=== PATIENT | female | born 1975 | race Caucasian/White ===

== ENCOUNTER 2018-04-23 17:25 | Emergency (ER) | payer BC ==
[~2018-04-23] VITALS: Ht 160 cm; Wt 84.1 kg
[2018-04-23] MEDS ORDERED: SERT-138 (17:32)
[2018-04-23] MEDS ORDERED: BUPR1TAB56 (17:32)
[2018-04-23] MEDS ORDERED: LITH600C (17:32)
[2018-04-23] MEDS ORDERED: LOSA100T50 (17:32)
[2018-04-23] MEDS ORDERED: CHLO125TA (17:32)
[2018-04-23] MEDS ORDERED: KETOROLAC 30 MG/ML VIAL (J1885) IV ONE (18:00)
[2018-04-23] MEDS ORDERED: NS 1,000 ML IV ONE (18:00)
[2018-04-23] MEDS ORDERED: ONDANSETRON 4MG/2ML VIAL (J2405) IV ONE (18:00)
[2018-04-23 18:21] LABS: BASO # 0.1 10^3/uL (0.0-0.2); BASO % 0.8 % (0.0-1.0); EOS # 0.2 10^3/uL (0.0-0.50); EOS % 3.2 % (0.0-3.0); HEMATOCRIT 41.6 % (36.0-47.0); HEMOGLOBIN 13.9 g/dl (12.0-15.5); LYMPH # 1.7 10^3/uL (1.5-4.5); LYMPH % 27.7 % (24.0-44.0); MEAN CORPUSCULAR HGB CONC 33.4 g/dl (32.0-36.5); MEAN CORPUSCULAR VOLUME 92.7 fl (80.0-96.0); MONO # 0.5 10^3/uL (0.0-0.8); MONO % 9.1 % (0.0-5.0); NEUTROPHILS # 3.5 10^3/uL (1.8-7.7); NEUTROPHILS % 58.9 % (36.0-66.0); PLATELET COUNT, AUTOMATED 398 10^3/uL (150-450); RED BLOOD COUNT 4.49 10^6/uL (4.00-5.40)
--- NOTE | 2018-04-23 18:27 | REPVR ---
EXAM: CT Abdomen and Pelvis Without Contrast EXAM DATE/TIME: 04/23/2018 5:57 PM CLINICAL HISTORY: 42 years old, female; Pain; Abdominal pain; Flank; Right; Additional info: R flank pain TECHNIQUE: Axial computed tomography images of the abdomen and pelvis without contrast. All CT scans at this facility use at least one of these dose optimization techniques: automated exposure control; mA and/or kV adjustment per patient size (includes targeted exams where dose is matched to clinical indication); or iterative reconstruction. Coronal and sagittal reformatted images were created and reviewed. COMPARISON: CT ABD PELVIS W/O CONTRAST 09/30/2013 11:15 AM FINDINGS: Lower thorax: No acute findings. ABDOMEN: Liver: Normal. No mass. Gallbladder and bile ducts: Normal. No calcified stones. No ductal dilation. Pancreas: Normal. No ductal dilation. Spleen: Normal. No splenomegaly. Adrenals: Normal. No mass. Kidneys and ureters: Multiple bilateral non obstructing renal calculi are demonstrated measuring up to 5 mm on the right. Findings stable. Stomach and bowel: Normal. No obstruction. No mucosal thickening. Appendix: No evidence of appendicitis. PELVIS: Bladder: Unremarkable as visualized. Reproductive: Unremarkable as visualized. ABDOMEN and PELVIS: Intraperitoneal space: Normal. No free air. No significant fluid collection. Bones/joints: No acute fracture. No dislocation. Soft tissues: Unremarkable. Vasculature: Normal. No abdominal aortic aneurysm. Lymph nodes: Normal. No enlarged lymph nodes. IMPRESSION: Multiple bilateral non obstructing renal calculi are demonstrated measuring up to 5 mm on the right. Findings stable. No acute findings. Electronically signed by: Ced Valencia On 04/23/2018 18:26:47 PM
[2018-04-23 18:45] LABS: ALBUMIN 3.8 GM/DL (3.2-5.2); ALT/SGPT 23 U/L (12-78); BILIRUBIN,DIRECT < 0.1 MG/DL (0.0-0.2); BILIRUBIN,TOTAL 0.3 MG/DL (0.2-1.0); BLOOD UREA NITROGEN 16 MG/DL (7-18); CALCIUM LEVEL 8.9 MG/DL (8.5-10.1); CARBON DIOXIDE LEVEL 28 MEQ/L (21-32); CHLORIDE LEVEL 104 MEQ/L (98-107); CREATININE FOR GFR 0.98 MG/DL (0.55-1.30); GLOMERULAR FILTRATION RATE > 60.0 (>58); GLUCOSE, FASTING 78 MG/DL (70-100); LIPASE 162 U/L (73-393); POTASSIUM SERUM 3.6 MEQ/L (3.5-5.1); SODIUM LEVEL 140 MEQ/L (136-145); TOTAL PROTEIN 6.6 GM/DL (6.4-8.2)
[2018-04-23] MEDS ORDERED: METHOCARBAMOL 1,000 MG/10 ML VIAL (J2800) IV ONE (18:45)
[2018-04-23] MEDS ORDERED: NAPR-50 PO (19:14)
[2018-04-23] MEDS ORDERED: LIDO5TD TOP (19:14)
[2018-04-23] MEDS ORDERED: ROBA500T PO (19:14)
[2018-04-23 19:20] VITALS: BP 125/82
== END 2018-04-23 19:32 | disposition home or self-care (01) ==
LOC: M ED 17:25
DX: M54.5 Low back pain (principal); M62.830 Muscle spasm of back; R11.0 Nausea; Z87.442 Personal history of urinary calculi; I10 Essential (primary) hypertension; Z88.5 Allergy status to narcotic agent; Z88.8 Allergy status to other drugs, medicaments and biological substances; Z79.899 Other long term (current) drug therapy
CPT/HCPCS: 74176; 80048; 80076; 81001; 81025; 83690; 85025; 96374; 96375; 99284; J1885; J2405; J2800

== ENCOUNTER 2018-08-23 06:16 | Emergency (ER) | payer BC ==
[~2018-08-23] VITALS: Ht 162.6 cm; Wt 84.1 kg
[~2018-08-23 06:16] MED LIST: BUPR1TAB56; CHLO125TA; LIDO5TD TOP; LITH600C; LOSA100T50; NAPR-837 PO; ROBA500T PO; SERT-138
[2018-08-23] MEDS ORDERED: ASPIRIN 81 MG CHEW TABLET PO ONE (06:45)
[2018-08-23] MEDS: NITROGLYCERIN 0.4 MG SUBL TABLET SL PRN ×4 (06:46→07:33)
[2018-08-23 06:55] LABS: BASO # 0.1 10^3/uL (0.0-0.2); BASO % 0.8 % (0.0-1.0); EOS # 0.2 10^3/uL (0.0-0.50); EOS % 2.5 % (0.0-3.0); HEMATOCRIT 40.9 % (36.0-47.0); HEMOGLOBIN 13.5 g/dl (12.0-15.5); LYMPH # 1.9 10^3/uL (1.5-4.5); MEAN CORPUSCULAR HEMOGLOBIN 31.2 pg (27.0-33.0); MEAN CORPUSCULAR VOLUME 94.5 fl (80.0-96.0); MONO # 0.7 10^3/uL (0.0-0.8); MONO % 10.8 % (0.0-5.0); NEUTROPHILS # 3.5 10^3/uL (1.8-7.7); NEUTROPHILS % 55.6 % (36.0-66.0); PLATELET COUNT, AUTOMATED 351 10^3/uL (150-450); RED BLOOD COUNT 4.33 10^6/uL (4.00-5.40); WHITE BLOOD COUNT 6.3 10^3/uL (4.0-10.0)
[2018-08-23 07:05] LABS: INR 0.83; PARTIAL THROMBOPLASTIN TIME 28.8 SECONDS (25.4-37.6); PROTHROMBIN TIME 11.5 SECONDS (12.1-14.4)
[2018-08-23] MEDS ORDERED: ONDANSETRON 4MG/2ML VIAL (J2405) IV ONE (07:15)
[2018-08-23 07:28] LABS: ALBUMIN 3.8 GM/DL (3.2-5.2); ALT/SGPT 29 U/L (12-78); BILIRUBIN,DIRECT < 0.1 MG/DL (0.0-0.2); BILIRUBIN,TOTAL 0.3 MG/DL (0.2-1.0); BLOOD UREA NITROGEN 17 MG/DL (7-18); CALCIUM LEVEL 10.1 MG/DL (8.5-10.1); CARBON DIOXIDE LEVEL 29 MEQ/L (21-32); CHLORIDE LEVEL 106 MEQ/L (98-107); CPK CREATINE PHOSPHOKINASE 121 U/L (26-192); CREATININE FOR GFR 1.02 MG/DL (0.55-1.30); FREE T4 0.88 NG/DL (0.76-1.46); GLOMERULAR FILTRATION RATE > 60.0 (>58); GLUCOSE, FASTING 98 MG/DL (70-100); LIPASE 198 U/L (73-393); MB/CK RELATIVE INDEX 0.83 (< OR =4); SODIUM LEVEL 141 MEQ/L (136-145); TOTAL PROTEIN 6.6 GM/DL (6.4-8.2); TROPONIN I < 0.02 NG/ML (< 0.10)
[2018-08-23 07:33] VITALS: BP 129/84
--- NOTE | 2018-08-23 08:04 | REP ---
Clinical: Acute chest pain . Comparison: 01/17/2013 . Technique: PA and lateral. Findings: The mediastinum and cardiac silhouette are normal. The lung trent are clear and without acute consolidation, effusion, or pneumothorax. The skeletal structures are intact and normal. Impression: 1. No acute cardiopulmonary process. Electronically Signed by Jose Matt MD 08/23/2018 07:56 A
[2018-08-23] MEDS ORDERED: ISOVUE-370 76% 100ML VIAL (Q9967) As Ordered ONE (08:24)
--- NOTE | 2018-08-23 09:01 | REP ---
Clinical: Acute chest pain and shortness of breath . Technique: Axial contrast enhanced images from the thoracic inlet to the upper abdomen using 100 ml Isovue 370 intravenous contrast material with coronal and sagittal re-formations. Findings: Satisfactory enhancement of the pulmonary vasculature is achieved and no filling defects are identified to suggest pulmonary embolus. Thoracic aorta is normal caliber without aneurysm or dissection. Heart and pericardium are normal. Bilateral lung trent are well aerated. Trace left basilar/lingular atelectasis suggested. No significant consolidation. No effusion or pneumothorax. No adenopathy. Tracheobronchial tree is patent. Musculoskeletal structures are intact. Impression: No evidence for pulmonary embolus. Trace left basilar atelectasis. Electronically Signed by Jose Matt MD 08/23/2018 08:53 A
[2018-08-23] MEDS ORDERED: LOSA100T50 PO (09:30)
[2018-08-23] MEDS ORDERED: CHLO125TA PO (09:31)
[2018-08-23 12:55] LABS: CK-MB VALUE MASS < 1.0 NG/ML (<3.6); CPK CREATINE PHOSPHOKINASE 91 U/L (26-192); TROPONIN I < 0.02 NG/ML (< 0.10)
[2018-08-23] MEDS ORDERED: ASPI81TA85 PO (13:31)
[2018-08-23 13:48] VITALS: BP 131/69
--- NOTE | 2018-08-23 20:49 | ECGEPIP ---
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
--- NOTE | 2018-08-23 20:56 | ECGEPIP ---
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
== END 2018-08-23 13:50 | disposition home or self-care (01) ==
LOC: M ED 06:16
DX: R07.9 Chest pain, unspecified (principal); R06.00 Dyspnea, unspecified; I10 Essential (primary) hypertension; Z88.5 Allergy status to narcotic agent; Z88.8 Allergy status to other drugs, medicaments and biological substances
CPT/HCPCS: 71046; 71275; 80048; 80076; 82550; 82553; 83690; 84439; 84443; 84484; 85025; 85610; 85730; 93005; 93041; 94760; 96374; 99285; J2405; Q9967

== ENCOUNTER → 2019-05-27 | Outpatient (CLI) | payer BC ==
[~2019-05-27] MED LIST changes: +ASPI81TA85 PO; +CHLO125TA PO; +LOSA100T50 PO
[2019-05-27 19:07] LABS: ALBUMIN 4.1 GM/DL (3.2-5.2); ALT/SGPT 35 U/L (12-78); BILIRUBIN,TOTAL 0.3 MG/DL (0.2-1.0); BLOOD UREA NITROGEN 13 MG/DL (7-18); CALCIUM LEVEL 10.1 MG/DL (8.5-10.1); CARBON DIOXIDE LEVEL 32 MEQ/L (21-32); CHLORIDE LEVEL 101 MEQ/L (98-107); CREATININE FOR GFR 0.97 MG/DL (0.55-1.30); GLOMERULAR FILTRATION RATE > 60.0 (>58); GLUCOSE, FASTING 91 MG/DL (70-100); POTASSIUM SERUM 3.2 MEQ/L (3.5-5.1); SODIUM LEVEL 138 MEQ/L (136-145); TOTAL PROTEIN 7.2 GM/DL (6.4-8.2)
== END ==
LOC: M PLALAB 12:20
PROVIDERS: ATTEND Nurse Practitioner Adult Health
DX: I10 Essential (primary) hypertension (principal)

== ENCOUNTER → 2019-06-25 | Outpatient (REF) | payer BC ==
[2019-06-26 10:02] LABS: AMORPHOUS SEDIMENT LARGE (NEGATIVE); APPEARANCE, URINE TURBID (CLEAR); BACTERIA, URINE AUTO NEGATIVE (NEGATIVE); BILIRUBIN, URINE AUTO NEGATIVE (NEGATIVE); BLOOD, URINE BLOOD 1+ (NEGATIVE); CALCIUM OXALATE CRYSTALS SMALL; COLOR, URINE YELLOW (YELLOW); GLUCOSE, URINE (UA) AUTO NEGATIVE (NEGATIVE); KETONE, URINE AUTO NEGATIVE (NEGATIVE); LEUKOCYTE ESTERASE, URINE AUTO NEGATIVE (NEGATIVE); MUCUS, URINE SMALL (NEGATIVE); NITRITE, URINE AUTO NEGATIVE (NEGATIVE); PROTEIN, URINE AUTO NEGATIVE (NEGATIVE); RBC, URINE AUTO 0 /HPF (0-3); SPECIFIC GRAVITY URINE AUTO 1.021 (1.002-1.035); SQUAMOUS EPITHELIAL CELL UR AU 0 /HPF (0-6); UROBILINOGEN, URINE AUTO 0.2 mg/dL (0.0-2.0); WBC, URINE AUTO 0 /HPF (0-3)
== END ==
LOC: M SFHCPLAZ 14:45
PROVIDERS: ATTEND Internal Medicine
DX: R30.0 Dysuria (principal)

== ENCOUNTER → 2020-04-06 | Outpatient (CLI) | payer SELFPAY ==
[~2020-04-06] MED LIST changes: -ASPI81TA85 PO; +ASPI81TA86 PO
== END ==
LOC: M LABSMTC 13:14
PROVIDERS: ATTEND Pediatrics
DX: Z20.822 Contact with and (suspected) exposure to COVID-19 (principal)

== ENCOUNTER → 2020-04-28 | Outpatient (CLI) | payer SELFPAY | LOC: M LABSMTC 13:15 | PROVIDERS: ATTEND Pediatrics | DX: Z20.822 Contact with and (suspected) exposure to COVID-19 (principal) ==

== ENCOUNTER 2021-01-29 06:19 | Emergency (ER) | payer BC, SELFPAY ==
[~2021-01-29] VITALS: Ht 162.6 cm; Wt 82.7 kg
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
--- OUTSIDE RECORDS SUMMARY | 2021-01-29 06:28 | CCD ---
Author Author [facility] Organization [facility] Address Unknown Phone Unavailable Care Team Providers Care Environmental Health Physician Name Role Phone Maring, Chandan PA Unavailable Unavailable Maring, Chandan PA Unavailable Unavailable Maring, Chandan PA Unavailable Unavailable Maring, Chnadan PA Unavailable Unavailable Maring, Chandan PA Unavailable Unavailable Maring, Chandan PA Unavailable Unavailable Maring, Chandan PA Unavailable Unavailable Maring, Chandan PA Unavailable Unavailable Maring, Chandan PA Unavailable Unavailable Maring, Chandan PA Unavailable Unavailable Maring, Chandan PA Unavailable Unavailable Maring, Chandan PA Unavailable Unavailable Maring, Chandan PA Unavailable Unavailable Maring, Chandan PA Unavailable Unavailable Maring, Chandan PA Unavailable Unavailable Maring, Chandan PA Unavailable Unavailable Cedric HUTCHINS MD Unavailable Unavailable Cedric HUTCHINS MD Unavailable Unavailable Cedric HUTCHINS MD Unavailable Unavailable Cedric HUTCHINS MD Unavailable Unavailable Cedric HUTCHINS MD Unavailable Unavailable Cedric HUTCHINS MD Unavailable Unavailable Cedric HUTCHINS MD Unavailable Unavailable Cedric HUTCHINS MD Unavailable Unavailable Cedric HUTCHINS MD Unavailable Unavailable Cedric HUTCHINS MD Unavailable Unavailable HUTCHINS, C CINDY MD Unavailable Unavailable HUTCHINS, C CINDY MD Unavailable Unavailable HUTCHINS, C CINDY MD Unavailable Unavailable HUTCHINS, C CINDY MD Unavailable Unavailable HUTCHINS, C CINDY MD Unavailable Unavailable HUTCHINS, C CINDY MD Unavailable Unavailable HUTCHINS, C CINDY MD Unavailable Unavailable HUTCHINS, C CINDY MD Unavailable Unavailable HUTCHINS, C CINDY MD Unavailable Unavailable HUTCHINS, C CINDY MD Unavailable Unavailable HUTCHINS, C CINDY MD Unavailable Unavailable HUTCHINS, C CINDY MD Unavailable Unavailable HUTCHINS, C CINDY MD Unavailable Unavailable HUTCHINS, C CINDY MD Unavailable Unavailable Re-disclosure Warning The records that you are about to access may contain information from federally-assisted alcohol or drug abuse programs. If such information is present, then the following federally mandated warning applies: This information has been disclosed to you from records protected by federal confidentiality rules (42 CFR part 2). The federal rules prohibit you from making any further disclosure of this information unless further disclosure is expressly permitted by the written consent of the person to whom it pertains or as otherwise permitted by 42 CFR part 2. A general authorization for the release of medical or other information is NOT sufficient for this purpose. The Federal rules restrict any use of the information to criminally investigate or prosecute any alcohol or drug abuse patient.The records that you are about to access may contain highly sensitive health information, the redisclosure of which is protected by Article 27-F of the [facility] Public Health law. If you continue you may have access to information: Regarding HIV / AIDS; Provided by facilities licensed or operated by the [facility] Office of Mental Health; or Provided by the [facility] Office for People With Developmental Disabilities. If such information is present, then the following [facility] mandated warning applies: This information has been disclosed to you from confidential records which are protected by state law. State law prohibits you from making any further disclosure of this information without the specific written consent of the person to whom it pertains, or as otherwise permitted by law. Any unauthorized further disclosure in violation of state law may result in a fine or [place] [facility] sentence or both. A general authorization for the release of medical or other information is NOT sufficient authorization for further disc losure. Family History Family Member Name Family Member Gender Family Member Status Date o f Status Description Data Source(s) Unknown Unknown Problem MEDENT ([facility]) Unknown Unknown Problem [facility] ([facility]) Encounters Encounter Providers Location Date Indications Data Source(s ) Outpatient Attender: CINDY HUTCHINS MD 01/28 02:53:06 PM EDT - 01/28/2021 04:38:29 PM EDT [facility] ([facility] ) [place] [address] [facility] [place] [address] 01/10/2021 12:00:00 AM EDT eCW1 ([facility]) Outpatient Attender: Chandan ROMERO 11/16/19 09:49:18 AM EDT - 11/15/2020 10:38:24 AM EDT [facility] ([facility] ) [place] [address] [place] [address] 08/25/2020 12:00:00 AM EDT eCW1 ([facility]) Unknown [address] [facility] [address] [place] [address] 08/11/2020 12:00:00 AM EDT eCW1 ([facility]) Unknown [address] [facility] [address] [place] [address] 08/10/2020 12:00:00 AM EDT eCW1 ([facility]) Unknown [address] [facility] [place] [address] 06/08/2020 12:00:00 AM EST eCW1 ([facility]) Unknown [address] [facility] [address] [place] [address] 04/13/2020 12:00:00 AM EST eCW1 ([facility]) Unknown [address] [facility] [address] [place] [address] 01/01/2020 12:00:00 AM EDT eCW1 ([facility]) Medications Medication Brand Name Start Date Product Form Dose Route Admi nistrative Instructions Pharmacy Instructions Status Indications Reaction Description Data Source(s) 20 mEq 01/11/2021 12:00:00 AM EDT tablet extended release 30 TAKE ONE TABLET BY MOUTH EVERY DAY WITH FOOD TAKE ONE TABLET BY MOUTH EVERY DAY WITH FOOD SOLD: 01/11/2021 [facility] 25 mg 12/23/2020 12:00:00 AM EDT tablet 30 TAKE ONE TABLET BY MOUTH EVERY MORNING WITH FOOD TAKE ONE TABLET BY MOUTH EVERY MORNING WITH FOOD SOLD: 12/23/2020 [facility] 25 mg 12/23/2020 12:00:00 AM EDT tablet 30 TAKE ONE TABLET BY MOUTH EVERY MORNING WITH FOOD TAKE ONE TABLET BY MOUTH EVERY MORNING WITH FOOD SOLD: 01/24/2021 [facility] pantoprazole 40 MG Delayed Release Oral Tablet PANTOPRAZOLE SODIUM 12/10/2020 12:00:00 AM EDT tablet,delayed release (DR/EC) 30 T TONI ONE TABLET BY MOUTH EVERY DAY TAKE ONE TABLET BY MOUTH EVERY DAY SOLD: 01/11/2021 [facility] pantoprazole 40 MG Delayed Release Oral Tablet PANTOPRAZOLE SODIUM 12/10/2020 12:00:00 AM EDT tablet,delayed release (DR/EC) 30 T TONI ONE TABLET BY MOUTH EVERY DAY TAKE ONE TABLET BY MOUTH EVERY DAY SOLD: 12/12/2020 [facility] 100 mg 12/10/2020 12:00:00 AM EDT tablet 30 TAKE ONE TABLET BY MOUTH BEFORE BEDTIME TAKE ONE TABLET BY MOUTH BEFORE BEDTIME SOLD: 12/12/2020 [facility] 100 mg 12/10/2020 12:00:00 AM EDT tablet 30 TAKE ONE TABLET BY MOUTH BEFORE BEDTIME TAKE ONE TABLET BY MOUTH BEFORE BEDTIME SOLD: 01/11/2021 [facility] 800 mg 11/15/2020 12:00:00 AM EDT tablet 30 TAKE ONE TABLET BY MOUTH THREE TIMES A DAY FOR 10 DAYS TAKE ONE TABLET BY MOUTH THREE TIMES A DAY FOR 10 DAYS SOLD: 11/15/2020 [facility] 875 mg 11/15/2020 12:00:00 AM EDT tablet 20 TAKE ONE TABLET BY MOUTH EVERY 12 HOURS FOR 10 DAYS TAKE ONE TABLET BY MOUTH EVERY 12 HOURS FOR 10 DAYS SO LD: 11/15/2020 [facility] 2 % 11/15/2020 12:00:00 AM EDT solution 100 USE 5ML FOUR TIMES A DAY FOR 5 DAYS USE 5ML FOUR TIMES A DAY FOR 5 DAYS SOLD: 11/15/2020 [facility] 90 mcg/actuation 10/10/2020 12:00:00 AM EDT HFA aerosol inha ler 18 INHALE TWO PUFFS BY MOUTH EVERY 4 HOURS NEEDED INHALE TWO PUFFS BY MOUTH EVERY 4 HOURS NEEDED SOLD: 11/12/2020 [facility] 90 mcg/actuation 10/10/2020 12:00:00 AM EDT HFA aerosol inha ler 18 INHALE TWO PUFFS BY MOUTH EVERY 4 HOURS NEEDED INHALE TWO PUFFS BY MOUTH EVERY 4 HOURS NEEDED SOLD: 10/22/2020 [facility] 100 mg 10/01/2020 12:00:00 AM EDT tablet 30 TAKE ONE TABLET BY MOUTH BEFORE BEDTIME TAKE ONE TABLET BY MOUTH BEFORE BEDTIME SOLD: 10/08/2020 [facility] pantoprazole 40 MG Delayed Release Oral Tablet PANTOPRAZOLE SODIUM 10/01/2020 12:00:00 AM EDT tablet,delayed release (DR/EC) 30 T TONI ONE TABLET BY MOUTH EVERY DAY TAKE ONE TABLET BY MOUTH EVERY DAY SOLD: 10/08/2020 [facility] 100 mg 10/01/2020 12:00:00 AM EDT tablet 30 TAKE ONE TABLET BY MOUTH BEFORE BEDTIME TAKE ONE TABLET BY MOUTH BEFORE BEDTIME SOLD: 11/12/2020 [facility] pantoprazole 40 MG Delayed Release Oral Tablet PANTOPRAZOLE SODIUM 10/01/2020 12:00:00 AM EDT tablet,delayed release (DR/EC) 30 T TONI ONE TABLET BY MOUTH EVERY DAY TAKE ONE TABLET BY MOUTH EVERY DAY SOLD: 11/12/2020 [facility] 90 mcg/actuation 08/28/2020 12:00:00 AM EDT HFA aerosol inha ler 18 INHALE TWO PUFFS BY MOUTH EVERY 4 HOURS NEEDED INHALE TWO PUFFS BY MOUTH EVERY 4 HOURS NEEDED SOLD: 09/27/2020 [facility] 90 mcg/actuation 08/28/2020 12:00:00 AM EDT HFA aerosol inha ler 18 INHALE TWO PUFFS BY MOUTH EVERY 4 HOURS NEEDED INHALE TWO PUFFS BY MOUTH EVERY 4 HOURS NEEDED SOLD: 09/03/2020 [facility] 25 mg 08/11/2020 12:00:00 AM EDT tablet 30 TAKE ONE TABLET BY MOUTH EVERY DAY IN THE MORNING WITH FOOD TAKE ONE TABLET BY MOUTH EVERY DAY IN MORNING WITH FOOD SOLD: 11/24/2020 [facility] 25 mg 08/11/2020 12:00:00 AM EDT tablet 30 TAKE ONE TABLET BY MOUTH EVERY DAY IN THE MORNING WITH FOOD TAKE ONE TABLET BY MOUTH EVERY DAY IN MORNING WITH FOOD SOLD: 09/17/2020 [facility] 25 mg 08/11/2020 12:00:00 AM EDT tablet 30 TAKE ONE TABLET BY MOUTH EVERY DAY IN THE MORNING WITH FOOD TAKE ONE TABLET BY MOUTH EVERY DAY IN MORNING WITH FOOD SOLD: 08/11/2020 [facility] 25 mg 08/11/2020 12:00:00 AM EDT tablet 30 TAKE ONE TABLET BY MOUTH EVERY DAY IN THE MORNING WITH FOOD TAKE ONE TABLET BY MOUTH EVERY DAY IN MORNING WITH FOOD SOLD: 10/22/2020 [facility] 100 mg 07/24/2020 12:00:00 AM EDT tablet 30 TAKE ONE TABLET BY MOUTH AT BEDTIME TAKE ONE TABLET BY MOUTH AT BEDTIME SOLD: 09/03/2020 [facility] 100 mg 07/24/2020 12:00:00 AM EDT tablet 30 TAKE ONE TABLET BY MOUTH AT BEDTIME TAKE ONE TABLET BY MOUTH AT BEDTIME SOLD: 08/01/2020 [facility] pantoprazole 40 MG Delayed Release Oral Tablet PANTOPRAZOLE SODIUM 07/12/2020 12:00:00 AM EDT tablet,delayed release (DR/EC) 30 T TONI ONE TABLET BY MOUTH EVERY DAY TAKE ONE TABLET BY MOUTH EVERY DAY SOLD: 09/03/2020 [facility] pantoprazole 40 MG Delayed Release Oral Tablet PANTOPRAZOLE SODIUM 07/12/2020 12:00:00 AM EDT tablet,delayed release (DR/EC) 30 T TONI ONE TABLET BY MOUTH EVERY DAY TAKE ONE TABLET BY MOUTH EVERY DAY SOLD: 08/01/2020 [facility] 20 mEq 06/25/2020 12:00:00 AM EDT tablet,ER particles/cry stals 30 TAKE ONE TABLET BY MOUTH EVERY DAY WITH FOOD TAKE ONE TABLET BY MOUTH EVERY DAY WITH FOOD SOLD: 06/26/2020 [facility] 25 mg 06/25/2020 12:00:00 AM EDT tablet 30 TAKE ONE TABLET BY MOUTH EVERY DAY TAKE ONE TABLET BY MOUTH EVERY DAY SOLD: 06/26/2020 [facility] 90 mcg/actuation 06/24/2020 12:00:00 AM EDT HFA aerosol inha ler 18 USE 2 PUFFS BY MOUTH EVERY 4 HOURS NEEDED USE 2 PUFFS BY MOUTH EVERY 4 HOURS NEEDED SOLD: 06/26/2020 [facility] 90 mcg/actuation 06/24/2020 12:00:00 AM EDT HFA aerosol inha ler 18 USE 2 PUFFS BY MOUTH EVERY 4 HOURS NEEDED USE 2 PUFFS BY MOUTH EVERY 4 HOURS NEEDED SOLD: 08/01/2020 [facility] 90 mcg/actuation 06/11/2020 12:00:00 AM EST HFA aerosol inha ler 18 USE 2 PUFFS BY MOUTH EVERY 4 HOURS NEEDED USE 2 PUFFS BY MOUTH EVERY 4 HOURS NEEDED SOLD: 07/07/2020 [facility] 90 mcg/actuation 06/11/2020 12:00:00 AM EST HFA aerosol inha ler 18 USE 2 PUFFS BY MOUTH EVERY 4 HOURS NEEDED USE 2 PUFFS BY MOUTH EVERY 4 HOURS NEEDED SOLD: 06/15/2020 [facility] 90 mcg/actuation 04/14/2020 12:00:00 AM EST HFA aerosol inha ler 18 INHALE 2 PUFFS BY MOUTH EVERY 4 HOURS NEEDED INHALE 2 PUFFS BY MOUTH EVERY 4 HOURS NEEDED SOLD: 05/10/2020 [facility] 90 mcg/actuation 04/14/2020 12:00:00 AM EST HFA aerosol inha ler 18 INHALE 2 PUFFS BY MOUTH EVERY 4 HOURS NEEDED INHALE 2 PUFFS BY MOUTH EVERY 4 HOURS NEEDED SOLD: 04/26/2020 [facility] 90 mcg/actuation 04/14/2020 12:00:00 AM EST HFA aerosol inha ler 18 INHALE 2 PUFFS BY MOUTH EVERY 4 HOURS NEEDED INHALE 2 PUFFS BY MOUTH EVERY 4 HOURS NEEDED SOLD: 05/29/2020 [facility] meloxicam 7.5 MG Oral Tablet MELOXICAM 03/15/2020 12:00:00 AM EST tabl et 20 TAKE ONE TABLET BY MOUTH EVERY DAY FOR 20 DAYS TAKE ONE TABLET BY MOUTH EVERY DAY FOR 20 DAYS SOLD: 03/15/2020 [facility] Cyclobenzaprine hydrochloride 10 MG Oral Tablet CYCLOBENZAPR INE HCL 03/15/2020 12:00:00 AM EST tablet 14 TAKE ONE TABLET BY MOUTH AT BEDTIME FOR 14 DAYS TAKE ONE TABLET BY MOUTH AT BEDTIME FOR 14 DAYS SOLD: 03/15/2020 [facility] 25 mg 02/18/2020 12:00:00 AM EST tablet 30 TAKE ONE TABLET BY MOUTH EVERY DAY TAKE ONE TABLET BY MOUTH EVERY DAY SOLD: 02/21/2020 [facility] 100 mg 02/17/2020 12:00:00 AM EST tablet 30 TAKE ONE TABLET BY MOUTH AT BEDTIME TAKE ONE TABLET BY MOUTH AT BEDTIME SOLD: 02/21/2020 [facility] 100 mg 02/17/2020 12:00:00 AM EST tablet 30 TAKE ONE TABLET BY MOUTH AT BEDTIME TAKE ONE TABLET BY MOUTH AT BEDTIME SOLD: 05/29/2020 [facility] 100 mg 02/17/2020 12:00:00 AM EST tablet 30 TAKE ONE TABLET BY MOUTH AT BEDTIME TAKE ONE TABLET BY MOUTH AT BEDTIME SOLD: 03/27/2020 [facility] 100 mg 02/17/2020 12:00:00 AM EST tablet 30 TAKE ONE TABLET BY MOUTH AT BEDTIME TAKE ONE TABLET BY MOUTH AT BEDTIME SOLD: 04/26/2020 [facility] 100 mg 02/17/2020 12:00:00 AM EST tablet 30 TAKE ONE TABLET BY MOUTH AT BEDTIME TAKE ONE TABLET BY MOUTH AT BEDTIME SOLD: 06/26/2020 [facility] 200 ACTUAT Albuterol 0.09 MG/ACTUAT Mete red Dose Inhaler [Ventolin] Ventolin HFA 108 (90 Base) MCG/ACT Ventolin HFA 108 (90 Base) MCG/ACT 01/01/2020 12:00:00 AM EDT 2.0 {puffs_as_needed} active Ventolin HFA 108 (90 Base) MCG/ACT eCW1 ([facility]) 200 ACTUAT Albuterol 0.09 MG/ACTUAT Mete red Dose Inhaler [Ventolin] Ventolin HFA 108 (90 Base) MCG/ACT Ventolin HFA 108 (90 Base) MCG/ACT 01/01/2020 12:00:00 AM EDT 2.0 {puffs_as_needed} active Ventolin HFA 108 (90 Base) MCG/ACT eCW1 ([facility]) 200 ACTUAT Albuterol 0.09 MG/ACTUAT Mete red Dose Inhaler [Ventolin] Ventolin HFA 108 (90 Base) MCG/ACT Ventolin HFA 108 (90 Base) MCG/ACT 01/01/2020 12:00:00 AM EDT 2.0 {puffs_as_needed} active Ventolin HFA 108 (90 Base) MCG/ACT eCW1 ([facility]) pantoprazole 40 MG Delayed Release Oral Tablet PANTOPRAZOLE SODIUM 12/23/2019 12:00:00 AM EDT tablet,delayed release (DR/EC) 30 T TONI ONE TABLET BY MOUTH EVERY DAY TAKE ONE TABLET BY MOUTH EVERY DAY SOLD: 05/10/2020 [facility] pantoprazole 40 MG Delayed Release Oral Tablet PANTOPRAZOLE SODIUM 12/23/2019 12:00:00 AM EDT tablet,delayed release (DR/EC) 30 T TONI ONE TABLET BY MOUTH EVERY DAY TAKE ONE TABLET BY MOUTH EVERY DAY SOLD: 01/30/2020 [facility] 40 mg 12/23/2019 12:00:00 AM EDT tablet,delayed release (DR/EC) 30 TAKE ONE TABLET BY MOUTH EVERY DAY TAKE ONE TABLET BY MOUTH EVERY DAY SOLD: 12/29/2019 [facility] pantoprazole 40 MG Delayed Release Oral Tablet PANTOPRAZOLE SODIUM 12/23/2019 12:00:00 AM EDT tablet,delayed release (DR/EC) 30 T TONI ONE TABLET BY MOUTH EVERY DAY TAKE ONE TABLET BY MOUTH EVERY DAY SOLD: 04/12/2020 [facility] 40 mg 12/23/2019 12:00:00 AM EDT tablet,delayed release (DR/EC) 30 TAKE ONE TABLET BY MOUTH EVERY DAY TAKE ONE TABLET BY MOUTH EVERY DAY SOLD: 03/12/2020 [facility] pantoprazole 40 MG Delayed Release Oral Tablet PANTOPRAZOLE SODIUM 12/23/2019 12:00:00 AM EDT tablet,delayed release (DR/EC) 30 T TONI ONE TABLET BY MOUTH EVERY DAY TAKE ONE TABLET BY MOUTH EVERY DAY SOLD: 06/15/2020 [facility] 20 mEq 12/16/2019 12:00:00 AM EDT tablet,ER particles/cry stals 30 TAKE ONE TABLET BY MOUTH EVERY DAY WITH FOOD TAKE ONE TABLET BY MOUTH EVERY DAY WITH FOOD SOLD: 01/21/2020 [facility] 20 mEq 12/16/2019 12:00:00 AM EDT tablet,ER particles/cry stals 30 TAKE ONE TABLET BY MOUTH EVERY DAY WITH FOOD TAKE ONE TABLET BY MOUTH EVERY DAY WITH FOOD SOLD: 05/29/2020 [facility] 20 mEq 12/16/2019 12:00:00 AM EDT tablet,ER particles/cry stals 30 TAKE ONE TABLET BY MOUTH EVERY DAY WITH FOOD TAKE ONE TABLET BY MOUTH EVERY DAY WITH FOOD SOLD: 03/27/2020 [facility] 20 mEq 12/16/2019 12:00:00 AM EDT tablet,ER particles/cry stals 30 TAKE ONE TABLET BY MOUTH EVERY DAY WITH FOOD TAKE ONE TABLET BY MOUTH EVERY DAY WITH FOOD SOLD: 04/26/2020 [facility] 20 mEq 12/16/2019 12:00:00 AM EDT tablet,ER particles/cry stals 30 TAKE ONE TABLET BY MOUTH EVERY DAY WITH FOOD TAKE ONE TABLET BY MOUTH EVERY DAY WITH FOOD SOLD: 12/19/2019 [facility] 20 mEq 12/16/2019 12:00:00 AM EDT tablet,ER particles/cry stals 30 TAKE ONE TABLET BY MOUTH EVERY DAY WITH FOOD TAKE ONE TABLET BY MOUTH EVERY DAY WITH FOOD SOLD: 02/21/2020 [facility] 100 mg 06/02/2019 12:00:00 AM EST tablet 30 TAKE 1 TABLET BY MOUTH BEFORE BEDTIME TAKE 1 TABLET BY MOUTH BEFORE BEDTIME SOLD: 12/19/2019 [facility] 100 mg 06/02/2019 12:00:00 AM EST tablet 30 TAKE 1 TABLET BY MOUTH BEFORE BEDTIME TAKE 1 TABLET BY MOUTH BEFORE BEDTIME SOLD: 01/21/2020 [facility] 25 mg 06/02/2019 12:00:00 AM EST tablet 30 TAKE ONE TABLET BY MOUTH EVERY MORNING WITH FOOD TAKE ONE TABLET BY MOUTH EVERY MORNING WITH FOOD SOLD: 12/19/2019 [facility] 25 mg 06/02/2019 12:00:00 AM EST tablet 30 TAKE ONE TABLET BY MOUTH EVERY MORNING WITH FOOD TAKE ONE TABLET BY MOUTH EVERY MORNING WITH FOOD SOLD: 01/21/2020 [facility] Insurance Providers Payer name Policy type / Coverage type Policy ID Covered democrat ID Covered democrat's relationship to eli Policy Eli Plan Information [facility] [id number] [facility] Health Maintenance Organization [place] [id number] [place] Dependent [facility] [id number] [facility] [id number] [facility] [id number] [facility] [id number] [facility] Blue Cross and Blue Shield - [place] Blue Cross/B lue Shield [id number] Self [id number] Liability [employer] [id number] Self I [id number] [place]ability [place] [employer] [id number] Self [id number] No Fault [place]FS [place] Self Pay [id number] Self [id number] ANSI-Commercial [id number] ANSI-Commercial [id number] ANSI-Commercial [id number] ANSI-Commercial [id number] [facility] Federal Plan Commercial [id number] Family Dependent [id number] BS [place] [employer] B [id number] P [id number] [facility] BC/BS Commercial [id number] Family Dependent BS [place] [employer] [id number] SELF PAY ONLY [id number] [facility] [id number] [facility] FEDERAL EMPLOYEE PROGRAM [id number] ANSI-Commercial [id number] ANSI-Commercial [id number] [facility] Federal Plan Commercial [id number] Family Dependent [id number] [facility] Federal Plan Commercial [id number] Family Dependent [id number] [facility] Federal Plan Commercial [id number] Family Dependent [id number] ANSI-Commercial [id number] Problems, Conditions, and Diagnoses No Information Surgeries/Procedures Procedure Description Date Indications Data Source(s) Medication: Tuberculin Purified Protein 0.1mL Intradermal (P PD) 08/25/2020 12:00:00 AM EDT eCW1 ([facility]) Results ID Date Data Source [id number] 04/28/2020 12:00:00 AM EST [facility] Name Value Range Interpretation Code Description Data Ariane rce(s) Supporting Document(s) SARS-CoV-2 (COVID-19) RNA [Presence] in Respiratory specimen by CELESTE with probe detection Not Detected [facility] This lab was ordered by [facility] and reported by [employer]. Procedure Social History Code Duration Value Status Description Data Source(s ) Smoking 08/25/2020 12:00:00 AM EDT Never Smoker completed Never S moker eCW1 ([facility]) Smoking 08/25/2020 12:00:00 AM EDT Never Smoker completed Never S moker eCW1 ([facility]) Smoking 08/25/2020 12:00:00 AM EDT Never Smoker completed Never S moker eCW1 ([facility]) Patient Treatment Plan of Care Planned Activity Planned Date Details Description Data Source (s) 200 ACTUAT Albuterol 0.09 MG/ACTUAT Metered Dose Inhal er [Ventolin] 01/01/2020 12:00:00 AM EDT eCW1 ([facility]) 200 ACTUAT Albuterol 0.09 MG/ACTUAT Metered Dose Inhal er [Ventolin] 01/01/2020 12:00:00 AM EDT eCW1 ([facility]) 200 ACTUAT Albuterol 0.09 MG/ACTUAT Metered Dose Inhal er [Ventolin] 01/01/2020 12:00:00 AM EDT eCW1 ([facility])
[2021-01-29] MEDS ORDERED: POTA20TA6 PO (06:43)
[2021-01-29] MEDS ORDERED: IBUP80TA PO (06:43)
[2021-01-29] MEDS ORDERED: AMOX875T2 PO (06:43)
[2021-01-29] MEDS ORDERED: traMADol 50 MG TAB PO ONE (07:50)
--- OUTSIDE RECORDS SUMMARY | 2021-01-29 08:35 | CCD ---
Author Author [facility] Organization [facility] Address Unknown Phone Unavailable Care Team Providers Care Alterations Tailor Name Role Phone Maring, Chandan PA Unavailable [...] is protected by Article 27-F of the [facility] Public Health law. If you continue you may have access to information: Regarding HIV / AIDS; Provided by facilities licensed or operated by the [facility] Office of Mental Health; or Provided by the [facility] Office for People With Developmental Disabilities. If such information is present, then the following [facility] mandated warning applies: This information has been [...] law may result in a fine or retirement sentence or both. A general authorization for [...] EDT - 01/28/2021 04:38:29 PM EDT [facility] ([facility] ) Unknown [address] [facility] [place] [address] 01/10/2021 12:00:00 AM EDT eCW1 ([facility]) Outpatient Attender: Chandan ROMERO 11/16/19 09:49:18 AM EDT - 11/15/2020 10:38:24 AM EDT [facility] ([facility] ) Out[place] [address] [facility] [place] [address] 08/25/2020 12:00:00 AM EDT eCW1 ([facility]) Unknown [address] [facility] [address] [place] [address] 08/11/2020 12:00:00 AM EDT eCW1 ([facility]) Unknown [address] [facility] [place] [address] 08/10/2020 12:00:00 AM EDT eCW1 ([facility]) Unknown [address] [facility] [place] [address] 06/08/2020 12:00:00 AM EST eCW1 ([facility]) Unknown [address] [facility] [address] [place] [address] 04/13/2020 12:00:00 AM EST eCW1 ([facility]) Unknown [address] [facility] [address] [place] [address] 01/01/2020 12:00:00 AM EDT eCW1 ([facility]) Medications Medication Brand Name Start Date Product [...] DAY IN MORNING WITH FOOD SOLD: 10/22/2020 [facility] 100 mg 07/24/2020 12:00:00 AM [...] Ventolin HFA 108 (90 Base) MCG/ACT eCW1 ([facility]) 200 ACTUAT Albuterol 0.09 MG/ACTUAT Mete red Dose Inhaler [Ventolin] Ventolin HFA 108 (90 Base) MCG/ACT Ventolin HFA 108 (90 Base) MCG/ACT 01/01/2020 12:00:00 AM EDT 2.0 {puffs_as_needed} active Ventolin HFA 108 (90 Base) MCG/ACT eCW1 ([facility]) 200 ACTUAT Albuterol 0.09 MG/ACTUAT Mete red Dose Inhaler [Ventolin] Ventolin HFA 108 (90 Base) MCG/ACT Ventolin HFA 108 (90 Base) MCG/ACT 01/01/2020 12:00:00 AM EDT 2.0 {puffs_as_needed} active Ventolin HFA 108 (90 Base) MCG/ACT eCW1 ([facility]) pantoprazole 40 MG Delayed Release Oral Tablet [...] type / Coverage type Policy ID Covered alliance party ID Covered alliance party's relationship to eli Policy Eli Plan Information [facility] [id number] [facility] Maintenance Organization ([facility]) [id number] Fa grecia Dependent [facility] [id number] [facility] [id number] [facility] [id number] [facility] [id number] [facility] Blue Cross and Blue Shield - [place] Blue Cross/B lue Shield [id number] Self [id number] Liability [employer] Medical [id number] Self I [id number] Liability [place] [employer] [id number] Self [id number] No Fault FFS [place] Self Pay [id number] Self [id number] ANSI-Commercial [id number] ANSI-Commercial [id number] ANSI-Commercial [id number] ANSI-Commercial [id number] [facility] Federal Plan Commercial [id number] Family Dependent [id number] BS [place] [employer] B [id number] P [id number] Federal BC/BS Commercial [id number] Family Dependent BS [place] [employer] [id number] [id number] [facility] FEDERAL EMPLOYEE PROGRAM [id number] SELF PAY ONLY [id number] ANSI-Commercial [id number] ANSI-Commercial [id number] [facility] Federal Plan Commercial [id number] Family Dependent [id number] [facility] Federal Plan Commercial [id number] Family Dependent [id number] [facility] Federal Plan Commercial [id number] Family Dependent [id number] ANSI-Commercial [id number] Problems, Conditions, and Diagnoses No Information Surgeries/Procedures Procedure Description Date Indications Data Source(s) Medication: Tuberculin Purified Protein 0.1mL Intradermal (P PD) 08/25/2020 12:00:00 AM EDT eCW1 ([facility]) Results ID Date Data Source [id number] 04/28/2020 12:00:00 AM EST [facility] Name Value Range Interpretation Code Description Data Ariane rce(s) Supporting Document(s) SARS-CoV-2 (COVID-19) RNA [Presence] in Respiratory specimen by [facility] with probe detection Not Detected [facility] This lab was ordered by [facility] and reported by [facility]. Procedure Social History Code Duration Value Status Description Data Source(s ) Smoking 08/25/2020 12:00:00 AM EDT Never Smoker completed Never S moker eCW1 ([facility]) Smoking 08/25/2020 12:00:00 AM EDT Never Smoker completed Never S moker eCW1 ([facility]) Smoking 08/25/2020 12:00:00 AM EDT Never Smoker completed Never S moker eCW1 ([facility]) Patient Treatment Plan of Care Planned Activity Planned Date Details Description Data Source (s) 200 ACTUAT Albuterol 0.09 MG/ACTUAT Metered Dose Inhal er [Ventolin] 01/01/2020 12:00:00 AM EDT eCW1 ([facility]) 200 ACTUAT Albuterol 0.09 MG/ACTUAT Metered Dose Inhal er [Ventolin] 01/01/2020 12:00:00 AM EDT eCW1 ([facility]) 200 ACTUAT Albuterol 0.09 MG/ACTUAT Metered Dose Inhal er [Ventolin] 01/01/2020 12:00:00 AM EDT eCW1 ([facility])
[2021-01-29] MEDS ORDERED: ISOVUE-370 76% 100ML VIAL As Ordered ONE (08:49)
--- NOTE | 2021-01-29 09:29 | REPVR ---
PROCEDURE INFORMATION: Exam: CT Maxillofacial With Contrast Exam date and time: 01/29/2021 8:55 AM Age: 45 years old Clinical indication: Mass, lump, or swelling; Maxilla; Additional info: ? Mandibular osteomylitis/abscess TECHNIQUE: Imaging protocol: Computed tomography images of the face with intravenous contrast. Radiation optimization: All CT scans at this facility use at least one of these dose optimization techniques: automated exposure control; mA and/or kV adjustment per patient size (includes targeted exams where dose is matched to clinical indication); or iterative reconstruction. Contrast material: ISOVUE 370; Contrast volume: 75 ml; Contrast route: INTRAVENOUS (IV); COMPARISON: No relevant prior studies available. FINDINGS: Orbital cavity: Examination reveals bilateral globes to be normal in size and morphology. The optic nerves are normal in thickness and symmetric bilaterally. The extraocular muscles are normal in thickness . The retroconal fat has a normal appearance. The lacrimal glands appear normal bilaterally. Bones/joints: The visualized osseous structures are unremarkable. No osteomyelitis, acute fracture or dislocation is seen. The bony orbital yanez are intact. No fractures are identified. Paranasal sinuses: Mild mucosal thickening in the right maxillary sinus. Mastoid air cells: The visualized mastoid air cells are clear. Soft tissues: Examination reveals mild diffuse soft tissue swelling in the left maxillary and mandibular region with inflammatory fat stranding suggesting cellulitis, most likely secondary to underlying dental infection. Dental evaluation is recommended.There is no evidence of focal fluid collections to suggest abscess formation. Lymph nodes: There are multiple enlarged level I ,2 and 3 lymph nodes in the neck bilaterally, most likely reactive in etiology. Brain: The visualized brain parenchyma is unremarkable. IMPRESSION: 1. Examination reveals mild diffuse soft tissue swelling in the left maxillary and mandibular region with inflammatory fat stranding suggesting cellulitis, most likely secondary to underlying dental infection. Dental evaluation is recommended.There is no evidence of focal fluid collections to suggest abscess formation. 2. The visualized osseous structures are unremarkable. No osteomyelitis, acute fracture or dislocation is seen. 3. There are multiple enlarged level I ,2 and 3 lymph nodes in the neck bilaterally, most likely reactive in etiology. Electronically signed by: Carlton Herring On 01/29/2021 09:28:28 AM
[2021-01-29] MEDS ORDERED: TRAM50TA2 PO (09:49)
[2021-01-29] MEDS ORDERED: KETOROLAC 30 MG/ML 1ML VIAL IV ONE (10:00)
[2021-01-29] MEDS ORDERED: ZOFR4TAB16 PO (10:07)
[2021-01-29 10:12] VITALS: BP 155/97
== END 2021-01-29 10:18 | disposition home or self-care (01) ==
LOC: M ED 06:19
DX: K08.89 Other specified disorders of teeth and supporting structures (principal); Z88.6 Allergy status to analgesic agent
CPT/HCPCS: 70487; 80047; 96374; 99284; J1885; Q9967

== ENCOUNTER → 2021-03-04 | Outpatient (CLI) | payer BC ==
[~2021-03-04] MED LIST changes: +AMOX875T2 PO; +IBUP80TA PO; +POTA20TA6 PO; +TRAM50TA2 PO; +ZOFR4TAB16 PO
== END ==
LOC: M LABSMTC 11:01
PROVIDERS: ATTEND Pediatrics
DX: Z20.822 Contact with and (suspected) exposure to COVID-19 (principal)
CPT/HCPCS: C9803; U0003

== ENCOUNTER → 2021-05-05 | Outpatient (REF) | payer BC ==
[~2021-05-05] MED LIST changes: +LOSA100T45; +LOSA100T45 PO; -LOSA100T50; -LOSA100T50 PO; +POTA-151 PO; -POTA20TA6 PO
[2021-05-05 17:27] LABS: HEMOGLOBIN A1c 5.6 %
[2021-05-05 17:38] LABS: ALBUMIN 3.8 GM/DL (3.2-5.2); ALT/SGPT 55 U/L (12-78); BILIRUBIN,TOTAL 0.3 MG/DL (0.2-1.0); BLOOD UREA NITROGEN 19 MG/DL (7-18); CALCIUM LEVEL 9.9 MG/DL (8.5-10.1); CARBON DIOXIDE LEVEL 31 MEQ/L (21-32); CHLORIDE LEVEL 101 MEQ/L (98-107); CHOLESTEROL LEVEL 247 MG/DL (<200); CHOLESTEROL RISK RATIO 3.983 (<5); CREATININE FOR GFR 0.91 MG/DL (0.55-1.30); GLOMERULAR FILTRATION RATE > 60.0 (>58); GLUCOSE, FASTING 87 MG/DL (70-100); HDL CHOLESTEROL 62 MG/DL (>40); LDL CHOLESTEROL 112 MG/DL (<100); NON-HDL-C 185 MG/DL; POTASSIUM SERUM 3.6 MEQ/L (3.5-5.1); SODIUM LEVEL 139 MEQ/L (136-145); TRIGLYCERIDES LEVEL 367 MG/DL (<150)
[2021-05-06 11:07] LABS: TOTAL 25(OH) VITAMIN D 45.9 NG/ML (30.0-100.0)
== END ==
LOC: M PLALAB 16:39
PROVIDERS: ATTEND Nurse Practitioner Adult Health
DX: E55.9 Vitamin D deficiency, unspecified (principal); I10 Essential (primary) hypertension; E78.2 Mixed hyperlipidemia; Z12.31 Encounter for screening mammogram for malignant neoplasm of breast; Z68.31 Body mass index [BMI] 31.0-31.9, adult; Z13.29 Encounter for screening for other suspected endocrine disorder

== ENCOUNTER → 2021-12-08 | Outpatient (CLI) | payer BC | LOC: M WHC 08:17 | PROVIDERS: ATTEND Nurse Practitioner Adult Health | DX: R14.0 Abdominal distension (gaseous) (principal) ==

== ENCOUNTER → 2021-12-21 | Outpatient (CLI) | payer BC ==
[2021-12-21 18:59] LABS: CALCIUM LEVEL 9.7 MG/DL (8.5-10.1); CREATININE FOR GFR 1.15 MG/DL (0.55-1.30); GLOMERULAR FILTRATION RATE 53.8 (>58); POTASSIUM SERUM 3.3 MEQ/L (3.5-5.1)
== END ==
LOC: M LAB 17:55
PROVIDERS: ATTEND Nurse Practitioner Adult Health
DX: I10 Essential (primary) hypertension (principal)

== ENCOUNTER → 2021-12-21 | Outpatient (REF) | payer BC | LOC: M SFHCPLAZ 09:11 | PROVIDERS: ATTEND Nurse Practitioner Adult Health | DX: Z53.20 Procedure and treatment not carried out because of patient's decision for unspecified reasons (principal) ==

== ENCOUNTER → 2021-12-23 | Outpatient (CLI) | payer BC ==
[~2021-12-23] MED LIST changes: +ISOVUE-370 76% 100ML VIAL As Ordered ONE
== END ==
LOC: M RAD 08:40
PROVIDERS: ATTEND Nurse Practitioner Adult Health
DX: N28.89 Other specified disorders of kidney and ureter (principal)
CPT/HCPCS: 74170; Q9967

== ENCOUNTER → 2022-01-26 | Outpatient (CLI) | payer BC ==
[~2022-01-26] MED LIST changes: -ISOVUE-370 76% 100ML VIAL As Ordered ONE
[2022-01-26 15:22] LABS: ALT/SGPT 35 U/L (12-78); BILIRUBIN,TOTAL 0.4 MG/DL (0.2-1.0); BLOOD UREA NITROGEN 20 MG/DL (7-18); CALCIUM LEVEL 9.9 MG/DL (8.5-10.1); CARBON DIOXIDE LEVEL 27 MEQ/L (21-32); CHLORIDE LEVEL 106 MEQ/L (98-107); CREATININE FOR GFR 1.03 MG/DL (0.55-1.30); GLOMERULAR FILTRATION RATE > 60.0 (>58); GLUCOSE, FASTING 102 MG/DL (70-100); POTASSIUM SERUM 4.1 MEQ/L (3.5-5.1); SODIUM LEVEL 140 MEQ/L (136-145)
== END ==
LOC: M PLALAB 09:27
PROVIDERS: ATTEND Nurse Practitioner Adult Health
DX: I10 Essential (primary) hypertension (principal)

== ENCOUNTER → 2022-04-19 | Outpatient (REF) | payer BC ==
[2022-04-19 18:05] LABS: BASO # 0.1 10^3/uL (0.0-0.2); BASO % 0.8 % (0.0-1.0); EOS # 0.2 10^3/uL (0.0-0.5); EOS % 2.3 % (0.0-3.0); HEMATOCRIT 43.3 % (36.0-47.0); HEMOGLOBIN 14.3 g/dl (12.0-15.5); LYMPH # 2.6 10^3/uL (1.5-5.0); MEAN CORPUSCULAR HEMOGLOBIN 29.9 pg (27.0-33.0); MEAN CORPUSCULAR VOLUME 90.6 fl (80.0-96.0); MONO # 1.1 10^3/uL (0.0-0.8); MONO % 13.6 % (2.0-8.0); NEUTROPHILS # 3.9 10^3/uL (1.5-8.5); PLATELET COUNT, AUTOMATED 396 10^3/uL (150-450); RED BLOOD COUNT 4.78 10^6/uL (4.00-5.40); WHITE BLOOD COUNT 7.9 10^3/uL (4.0-10.0)
[2022-04-19 18:25] LABS: TOTAL 25(OH) VITAMIN D 72.8 NG/ML (20.0-100.0)
[2022-04-19 18:28] LABS: ALBUMIN 4.5 G/DL (3.2-5.2); ALKALINE PHOSPHATASE 60 U/L (46-116); ALT/SGPT 38 U/L (7.0-40); AST/SGOT 19 U/L (<34); BILIRUBIN,TOTAL 0.6 MG/DL (0.3-1.2); BLOOD UREA NITROGEN 24 MG/DL (9-23); CALCIUM LEVEL 10.9 MG/DL (8.5-10.1); CARBON DIOXIDE LEVEL 30 MMOL/L (20-31); CHLORIDE LEVEL 100 MMOL/L (98-107); CHOLESTEROL LEVEL 246 MG/DL (<200); CHOLESTEROL RISK RATIO 3.48 (<5); CREATININE FOR GFR 0.97 MG/DL (0.55-1.30); GLOMERULAR FILTRATION RATE > 60.0 (>58); GLUCOSE, FASTING 81 MG/DL (60-100); HDL CHOLESTEROL 70.5 MG/DL (>40); LDL CHOLESTEROL 138.3 MG/DL (<100); NON-HDL-C 176 MG/DL; POTASSIUM SERUM 3.8 MMOL/L (3.5-5.1); SODIUM LEVEL 138 MMOL/L (136-145); TOTAL PROTEIN 7.7 G/DL (5.7-8.2); TRIGLYCERIDES LEVEL 186 MG/DL (<150)
== END ==
LOC: M SFHCPLAZ 16:42
PROVIDERS: ATTEND Physician Assistant
DX: E55.9 Vitamin D deficiency, unspecified (principal); Z84.1 Family history of disorders of kidney and ureter; R06.02 Shortness of breath; J01.00 Acute maxillary sinusitis, unspecified; E78.2 Mixed hyperlipidemia; R07.9 Chest pain, unspecified

== ENCOUNTER → 2022-05-03 | Outpatient (CLI) | payer BC | LOC: M WHC 09:24 | PROVIDERS: ATTEND Advanced Practice Midwife | DX: Z12.31 Encounter for screening mammogram for malignant neoplasm of breast (principal) ==

== ENCOUNTER → 2022-05-03 | Outpatient (CLI) | payer BC | LOC: M WHC 09:26 | PROVIDERS: ATTEND Advanced Practice Midwife | DX: Z12.31 Encounter for screening mammogram for malignant neoplasm of breast (principal) ==

== ENCOUNTER → 2022-05-03 | Outpatient (CLI) | payer BC | LOC: M PLALAB 11:02 | PROVIDERS: ATTEND Advanced Practice Midwife | DX: Z12.4 Encounter for screening for malignant neoplasm of cervix (principal); Z80.3 Family history of malignant neoplasm of breast; Z80.42 Family history of malignant neoplasm of prostate | CPT/HCPCS: 36415; 87624; G0123 ==

== ENCOUNTER → 2022-05-16 | Outpatient (CLI) | payer BC ==
[2022-05-16 16:06] LABS: ALBUMIN 4.2 G/DL (3.2-5.2); ALKALINE PHOSPHATASE 60 U/L (46-116); ALT/SGPT 34 U/L (7.0-40); AST/SGOT 9 U/L (<34); BILIRUBIN,TOTAL 0.4 MG/DL (0.3-1.2); BLOOD UREA NITROGEN 20 MG/DL (9-23); CARBON DIOXIDE LEVEL 30 MMOL/L (20-31); CHLORIDE LEVEL 104 MMOL/L (98-107); CREATININE FOR GFR 0.94 MG/DL (0.55-1.30); GLOMERULAR FILTRATION RATE > 60.0 (>58); GLUCOSE, FASTING 88 MG/DL (60-100); POTASSIUM SERUM 3.7 MMOL/L (3.5-5.1); SODIUM LEVEL 138 MMOL/L (136-145); TOTAL PROTEIN 7.3 G/DL (5.7-8.2)
== END ==
LOC: M PLALAB 14:44 → M LAB 14:44
PROVIDERS: ATTEND Urology
DX: N20.0 Calculus of kidney (principal)

== ENCOUNTER → 2022-06-07 | Outpatient (CLI) | payer BC | LOC: M WHC 12:33 | PROVIDERS: ATTEND Advanced Practice Midwife | DX: R92.2 Inconclusive mammogram (principal); N85.4 Malposition of uterus; D25.9 Leiomyoma of uterus, unspecified | CPT/HCPCS: 76830; 76856; 77066; G0279 ==

== ENCOUNTER → 2022-10-10 | Outpatient (REF) | payer BC ==
[~2022-10-10] MED LIST changes: +BIOT1000 PO; +D3 M1CAP2 PO; +LEVOTAB10 PO; -LOSA100T45; -LOSA100T45 PO; +LOSA100T46; +LOSA100T46 PO; +MELO15TA28 PO; +PANT40TA29 PO
== END ==
LOC: M PLALAB 16:13
PROVIDERS: ATTEND Obstetrics & Gynecology
DX: D26.1 Other benign neoplasm of corpus uteri (principal)

== ENCOUNTER 2022-10-27 12:04 | Day surgery (SDC) | payer BC ==
[~2022-10-27] VITALS: Ht 162.6 cm; Wt 87.5 kg
[~2022-10-27 12:04] MED LIST changes: +METHYLENE BLUE 0.5% (5MG/ML) 10 ML AMP (PROVAYBLUE) As Ordered ONE
[2022-10-27] MEDS ORDERED: ceFAZolin SOD 2 GM in IV 1 EA IV ONE (12:35)
[2022-10-27 12:37] LABS: HEMATOCRIT 40.8 % (36.0-47.0); HEMOGLOBIN 13.8 g/dl (12.0-15.5); MEAN CORPUSCULAR HEMOGLOBIN 29.8 pg (27.0-33.0); MEAN CORPUSCULAR HGB CONC 33.8 g/dl (32.0-36.5); MEAN CORPUSCULAR VOLUME 88.1 fl (80.0-96.0); PLATELET COUNT, AUTOMATED 375 10^3/uL (150-450); RED BLOOD COUNT 4.63 10^6/uL (4.00-5.40); WHITE BLOOD COUNT 4.7 10^3/uL (4.0-10.0)
[2022-10-27] MEDS ORDERED: SCOPOLAMINE 1MG TRANSDERMAL PATCH TOP ONE (12:50)
[2022-10-27] MEDS ORDERED: diphenhydrAMINE 50MG/ML VIAL IV PRN (12:50)
[2022-10-27] MEDS ORDERED: LR 1,000 ML IV SCH ×3 (12:55→15:10)
[2022-10-27] MEDS ORDERED: propofoL 200 MG/20 ML VIAL As Ordered ONE (13:41)
[2022-10-27] MEDS ORDERED: LIDOCAINE 2% 100MG/5ML SDV (FOR ANES.) As Ordered ONE (13:41)
[2022-10-27] MEDS ORDERED: MIDAZOLAM INJ 2MG/2ML VIAL As Ordered ONE (13:41)
[2022-10-27] MEDS ORDERED: KETOROLAC 60MG 2ML VIAL As Ordered ONE (13:41)
[2022-10-27] MEDS ORDERED: fentaNYL 250 MCG/5 ML INJECTION As Ordered ONE (13:41)
[2022-10-27] MEDS ORDERED: ACETAMINOPHEN 1000MG 100ML IV BAG As Ordered ONE (13:41)
[2022-10-27] MEDS ORDERED: HYDROmorphone HCL 2MG/ML 1ML VIAL As Ordered ONE (13:41)
[2022-10-27] MEDS ORDERED: ROCURONIUM BROMIDE 50MG/5ML VIAL As Ordered ONE (13:41)
[2022-10-27] MEDS ORDERED: METOCLOPRAMIDE INJ 10MG/2ML VIAL As Ordered ONE (13:41)
[2022-10-27] MEDS ORDERED: SUGAMMADEX SODIUM 500 MG/5 ML VIAL (BRIDION) As Ordered ONE (13:41)
[2022-10-27] MEDS ORDERED: ONDANSETRON 4MG 2ML VIAL As Ordered ONE (13:41)
[2022-10-27] MEDS ORDERED: fentaNYL 100 MCG/2 ML INJECTION IV PRN (14:50)
[2022-10-27] MEDS ORDERED: HYDROMORPHONE HCL 0.5 MG/ 0.5 ML SYRINGE IV PRN (14:50)
[2022-10-27] MEDS ORDERED: ONDANSETRON 4MG 2ML VIAL IV PRN ×2 (14:50→15:10)
[2022-10-27] MEDS ORDERED: TRAM50TA2 PO (15:06)
[2022-10-27] MEDS ORDERED: IBUP80TA PO (15:08)
[2022-10-27] MEDS ORDERED: COLA100C5 PO (15:09)
[2022-10-27] MEDS ORDERED: traMADol 50 MG TAB PO PRN ×2 (15:10)
[2022-10-27] MEDS: traMADol 50 MG TAB PO PRN ×2 (15:41→16:20)
[2022-10-27 17:05] VITALS: BP 117/75; TEMP 96; O2SAT 100
[2022-10-27 17:35] VITALS: BP 109/67; TEMP 96.5; O2SAT 99
[2022-10-27 18:05] VITALS: BP 94/56; TEMP 96.1; O2SAT 97
[2022-10-27 19:05] VITALS: BP 118/53; TEMP 97.2; O2SAT 93
[2022-10-27 20:05] VITALS: BP 91/51; TEMP 98; O2SAT 98
[2022-10-27 21:00] VITALS: BP 108/68; TEMP 98.2; O2SAT 97
[2022-10-27] MEDS ORDERED: KETOROLAC 30 MG/ML 1ML VIAL IV SCH (21:00)
[2022-10-27] MEDS ORDERED: DOCUSATE SODIUM 100MG CAPSULE PO SCH (21:00)
[2022-10-28] MEDS ORDERED: IBUPROFEN 800 MG TAB PO SCH (17:00)
== END 2022-10-27 22:35 | disposition home or self-care (01) ==
LOC: M SDC 12:04 → M ED INP 12:05 → M OBS 17:00
PROVIDERS: ADMIT Obstetrics & Gynecology; ATTEND Obstetrics & Gynecology
DX: D25.1 Intramural leiomyoma of uterus (principal); N93.9 Abnormal uterine and vaginal bleeding, unspecified; R10.2 Pelvic and perineal pain; I10 Essential (primary) hypertension; K21.9 Gastro-esophageal reflux disease without esophagitis; Z79.899 Other long term (current) drug therapy; Z88.5 Allergy status to narcotic agent; J45.909 Unspecified asthma, uncomplicated; F32.A Depression, unspecified
CPT/HCPCS: 36415; 58571; 85027; 86850; 86900; 86901; 88307; J0131; J0665; J0690; J1100; J1170; J1200; J1885; J2250; J2405; J2765; J3010; Q9968; S2900

== ENCOUNTER → 2022-11-15 | Outpatient (CLI) | payer BC ==
[~2022-11-15] MED LIST changes: +COLA100C5 PO; -METHYLENE BLUE 0.5% (5MG/ML) 10 ML AMP (PROVAYBLUE) As Ordered ONE
[2022-11-15 16:08] LABS: C REACTIVE PROTEIN QUANTITATIV < 0.40 MG/DL (<1.0); RHEUMATOID FACTOR QUANT 10.2 IU/ML (<14)
[2022-11-15 16:15] LABS: ALBUMIN 4.1 G/DL (3.2-5.2); ALKALINE PHOSPHATASE 48 U/L (46-116); ALT/SGPT 22 U/L (7.0-40); AST/SGOT 9 U/L (<34); BLOOD UREA NITROGEN 19 MG/DL (9-23); CALCIUM LEVEL 9.7 MG/DL (8.5-10.1); CARBON DIOXIDE LEVEL 29 MMOL/L (20-31); CHLORIDE LEVEL 101 MMOL/L (98-107); CHOLESTEROL LEVEL 242 MG/DL (<200); CHOLESTEROL RISK RATIO 3.77 (<5); CREATININE FOR GFR 0.99 MG/DL (0.55-1.30); GLOMERULAR FILTRATION RATE > 60.0 (>58); GLUCOSE, FASTING 80 MG/DL (60-100); HDL CHOLESTEROL 64.1 MG/DL (>40); LDL CHOLESTEROL 154.1 MG/DL (<100); NON-HDL-C 177.9 MG/DL; POTASSIUM SERUM 3.9 MMOL/L (3.5-5.1); SODIUM LEVEL 139 MMOL/L (136-145); TOTAL PROTEIN 7.2 G/DL (5.7-8.2); TRIGLYCERIDES LEVEL 119 MG/DL (<150)
[2022-11-17 23:12] LABS: ANA (HEP2) Negative (.); ANGIOTENSIN 1 CONVERTING ENZYM 33 U/L (14-82); CYCLIC CITRULLINATED PEPTIDE 7 units (0-19); IgG P18 AB Absent (.); IgG P23 AB Absent (.); IgG P28 AB Absent (.); IgG P30 AB Absent (.); IgG P39 AB Absent (.); IgG P41 AB Absent (.); IgG P45 AB Absent (.); IgG P66 AB Absent (.); IgG P93 AB Absent (.); IgM P23 AB Absent (.); IgM P39 AB Absent (.); IgM P41 AB Absent (.); LYME IgG WB INTERPRETATION Negative (.); LYME IgM WB INTERPRETATION Negative (.)
== END ==
LOC: M PLALAB 13:14
PROVIDERS: ATTEND Nurse Practitioner Adult Health
DX: Z13.220 Encounter for screening for lipoid disorders (principal); I10 Essential (primary) hypertension; M25.50 Pain in unspecified joint

== ENCOUNTER → 2022-12-12 | Outpatient (CLI) | payer BC | LOC: M WHC 15:00 | PROVIDERS: ATTEND Nurse Practitioner Women's Health | DX: R92.8 Other abnormal and inconclusive findings on diagnostic imaging of breast (principal) | CPT/HCPCS: 77065; G0279 ==

== ENCOUNTER → 2023-05-16 | Outpatient (CLI) | payer BC | LOC: M WHC 15:03 | PROVIDERS: ATTEND Advanced Practice Midwife | DX: Z12.31 Encounter for screening mammogram for malignant neoplasm of breast (principal) ==

== ENCOUNTER → 2023-06-01 | Outpatient (CLI) | payer BC ==
[2023-06-01 15:19] LABS: ALKALINE PHOSPHATASE 50 U/L (46-116); ALT/SGPT 30 U/L (7.0-40); AST/SGOT 18 U/L (<34); BILIRUBIN,TOTAL 0.7 MG/DL (0.3-1.2); BLOOD UREA NITROGEN 22 MG/DL (9-23); CALCIUM LEVEL 9.8 MG/DL (8.5-10.1); CARBON DIOXIDE LEVEL 31 MMOL/L (20-31); CHLORIDE LEVEL 105 MMOL/L (98-107); CHOLESTEROL LEVEL 220 MG/DL (<200); CHOLESTEROL RISK RATIO 3.01 (<5); CREATININE FOR GFR 0.97 MG/DL (0.55-1.30); GLOMERULAR FILTRATION RATE > 60.0 (>58); GLUCOSE, FASTING 88 MG/DL (60-100); HDL CHOLESTEROL 72.9 MG/DL (>40); LDL CHOLESTEROL 123.5 MG/DL (<100); NON-HDL-C 147.1 MG/DL; POTASSIUM SERUM 4.1 MMOL/L (3.5-5.1); SODIUM LEVEL 139 MMOL/L (136-145); TRIGLYCERIDES LEVEL 118 MG/DL (<150)
[2023-06-01 15:22] LABS: THYROID STIMULATING HORMONE 1.143 uIU/ML (0.55-4.78)
[2023-06-01 15:23] LABS: VITAMIN B12 LEVEL 494 PG/ML (211-911)
[2023-06-01 15:32] LABS: HEMOGLOBIN A1c 5.6 % (4.0-6.0)
== END ==
LOC: M PLALAB 11:59
PROVIDERS: ATTEND Nurse Practitioner Adult Health
DX: I10 Essential (primary) hypertension (principal)

== ENCOUNTER → 2023-06-08 | Outpatient (CLI) | payer BC | LOC: M WHC 09:24 | PROVIDERS: ATTEND Nurse Practitioner Adult Health | DX: K80.20 Calculus of gallbladder without cholecystitis without obstruction (principal); K76.0 Fatty (change of) liver, not elsewhere classified; R10.13 Epigastric pain ==

== ENCOUNTER → 2023-07-13 | Outpatient (CLI) | payer BC ==
[2023-07-13 18:40] LABS: BASO # 0.1 10^3/uL (0.0-0.2); BASO % 1.2 % (0.0-1.0); EOS # 0.2 10^3/uL (0.0-0.5); EOS % 2.8 % (0.0-3.0); HEMATOCRIT 40.7 % (36.0-47.0); HEMOGLOBIN 13.6 g/dl (12.0-15.5); LYMPH # 2.3 10^3/uL (1.5-5.0); LYMPH % 38.9 % (24.0-44.0); MEAN CORPUSCULAR HGB CONC 33.4 g/dl (32.0-36.5); MEAN CORPUSCULAR VOLUME 89.8 fl (80.0-96.0); MONO # 0.6 10^3/uL (0.0-0.8); MONO % 9.7 % (2.0-8.0); NEUTROPHILS # 2.7 10^3/uL (1.5-8.5); NEUTROPHILS % 47.2 % (36.0-66.0); PLATELET COUNT, AUTOMATED 427 10^3/uL (150-450); RED BLOOD COUNT 4.53 10^6/uL (4.00-5.40); WHITE BLOOD COUNT 5.8 10^3/uL (4.0-10.0)
[2023-07-13 18:55] LABS: ERYTHROCYTE SEDIMENTATION RATE 15 mm/hr (0-20)
[2023-07-13 19:03] LABS: URIC ACID 7.4 MG/DL (3.1-7.8)
[2023-07-13 19:06] LABS: ALBUMIN 4.2 G/DL (3.2-5.2); ALKALINE PHOSPHATASE 55 U/L (46-116); ALT/SGPT 30 U/L (7.0-40); AST/SGOT 21 U/L (<34); BILIRUBIN,TOTAL 0.4 MG/DL (0.3-1.2); BLOOD UREA NITROGEN 25 MG/DL (9-23); CALCIUM LEVEL 10.5 MG/DL (8.5-10.1); CARBON DIOXIDE LEVEL 29 MMOL/L (20-31); CHLORIDE LEVEL 100 MMOL/L (98-107); CREATININE FOR GFR 0.95 MG/DL (0.55-1.30); GLOMERULAR FILTRATION RATE > 60.0 (>58); GLUCOSE, FASTING 92 MG/DL (60-100); POTASSIUM SERUM 4.1 MMOL/L (3.5-5.1); SODIUM LEVEL 137 MMOL/L (136-145); TOTAL PROTEIN 7.2 G/DL (5.7-8.2)
== END ==
LOC: M PLALAB 14:43
PROVIDERS: ATTEND Student in an Organized Health Care Education/Training Program
DX: M25.562 Pain in left knee (principal)

== ENCOUNTER 2024-01-08 07:25 | Day surgery (SDC) | payer BC ==
[~2024-01-08] VITALS: Ht 162.6 cm; Wt 85.5 kg
[~2024-01-08 07:25] MED LIST changes: +ALBU8.5H INH; +FAMO40TA3 PO; +POTA-298 PO
[2024-01-08] MEDS: LR 1,000 ML IV SCH (08:22)
[2024-01-08] MEDS: SCOPOLAMINE 1MG TRANSDERMAL PATCH TOP ONE (08:46)
[2024-01-08] MEDS: INDOCYANINE GREEN 25MG VIAL (IC-GREEN) IV ONE (09:23)
[2024-01-08] MEDS: ceFAZolin SOD 2 GM in IV 1 EA IV ONE (09:23)
[2024-01-08] MEDS: HEPARIN SOD (PORCINE) 5000UNITS/ML 1ML VIAL/SYRINGE SQ ONE (09:35)
[2024-01-08] MEDS ORDERED: fentaNYL 250 MCG/5 ML INJECTION As Ordered ONE (09:48)
[2024-01-08] MEDS ORDERED: ROCURONIUM BROMIDE 50MG/5ML VIAL As Ordered ONE (09:48)
[2024-01-08] MEDS ORDERED: LIDOCAINE 2% 100MG/5ML SDV (FOR ANES.) As Ordered ONE (09:48)
[2024-01-08] MEDS ORDERED: KETOROLAC 60MG 2ML VIAL As Ordered ONE (09:48)
[2024-01-08] MEDS ORDERED: ePHEDrine SULFATE 25 MG/5 ML(5MG/ML) SYRINGE As Ordered ONE (09:48)
[2024-01-08] MEDS ORDERED: propofoL 200 MG/20 ML VIAL As Ordered ONE (09:48)
[2024-01-08] MEDS ORDERED: ACETAMINOPHEN 1000MG 100ML IV BAG As Ordered ONE (09:48)
[2024-01-08] MEDS ORDERED: ONDANSETRON 4MG 2ML VIAL As Ordered ONE (09:48)
[2024-01-08] MEDS ORDERED: METOCLOPRAMIDE INJ 10MG/2ML VIAL As Ordered ONE (09:48)
[2024-01-08] MEDS ORDERED: MIDAZOLAM INJ 2MG/2ML VIAL As Ordered ONE (09:48)
[2024-01-08] MEDS ORDERED: dexmedeTOMIDine (4MCG/ML)200MCG/50ML BTL (PRECEDEX) As Ordered ONE (09:48)
[2024-01-08] MEDS ORDERED: SUGAMMADEX SODIUM 500 MG/5 ML VIAL (BRIDION) As Ordered ONE (09:48)
[2024-01-08] MEDS ORDERED: INDOCYANINE GREEN 25MG VIAL (IC-GREEN) As Ordered ONE (09:48)
[2024-01-08] MEDS ORDERED: HYDROMORPHONE HCL 0.5 MG/ 0.5 ML SYRINGE IV PRN (10:25)
[2024-01-08] MEDS: ONDANSETRON 4MG 2ML VIAL IV PRN (10:48)
[2024-01-08] MEDS: fentaNYL 100 MCG/2 ML INJECTION IV PRN (10:54)
[2024-01-08] MEDS ORDERED: traMADol 50 MG TAB PO ONE (11:00)
[2024-01-08 13:35] VITALS: BP 136/75; TEMP 97.8; O2SAT 99
== END 2024-01-08 08:53 | disposition home or self-care (01) ==
LOC: M SDC 07:25
PROVIDERS: ATTEND Surgery
DX: K80.20 Calculus of gallbladder without cholecystitis without obstruction (principal); I10 Essential (primary) hypertension; K21.9 Gastro-esophageal reflux disease without esophagitis; F41.9 Anxiety disorder, unspecified; F32.A Depression, unspecified; J45.909 Unspecified asthma, uncomplicated; Z79.51 Long term (current) use of inhaled steroids; Z79.899 Other long term (current) drug therapy; Z88.5 Allergy status to narcotic agent
CPT/HCPCS: 47562; 88304; J0131; J0665; J0690; J1100; J1885; J2250; J2405; J2765; J3010; Q9968; S2900

== ENCOUNTER → 2024-10-23 | Outpatient (CLI) | payer BC ==
[~2024-10-23] MED LIST changes: -BIOT1000 PO; +BIOT10002 PO; -BUPR1TAB56; +BUPR200T45
== END ==
LOC: M WHC 08:31
PROVIDERS: ATTEND Advanced Practice Midwife
DX: Z12.31 Encounter for screening mammogram for malignant neoplasm of breast (principal); R92.323 Mammographic fibroglandular density, bilateral breasts

== ENCOUNTER → 2024-11-25 | Outpatient (CLI) | payer BC ==
[2024-11-29 19:18] LABS: ALPHA 2-MACROGLOBULINS,QN 172 mg/dL (106-279); ALT (SGPT) P5P 18 U/L (6-29); APOLIPOPROTEIN A-1 207 mg/dL (101-198); FIBROSIS SCORE 0.14; FIBROSIS STAGE NO FIBROSIS (F0); GGT 61 U/L (3-70); HAPTOGLOBIN 157 mg/dL (43-212); NECROINFLAM ACT GRADE NO ACTIVITY (A0); NECROINFLAM ACT SCORE 0.05
== END ==
LOC: M RAD 06:58
PROVIDERS: ATTEND Nurse Practitioner Adult Health
DX: R10.11 Right upper quadrant pain (principal)